=== PATIENT | female | born 1950 | race Caucasian/White ===

== ENCOUNTER 2017-07-22 13:53 | Emergency (ER) | payer MEDICARE, OTHER ==
[2017-07-22] MEDS ORDERED: PROPARACAINE 0.5% OPHTH DROPS 15 ML BTL RIGHT EYE STA (14:22)
[2017-07-22] MEDS ORDERED: FLUORESCEIN STRIPS 1 MG STRIP RIGHT EYE ONE (14:22)
[2017-07-22] MEDS ORDERED: ARTIFICIAL TEARS-HYPROMELLOSE DROPS 15 ML BTL RIGHT EYE PRN (15:46)
--- NOTE | 2017-07-22 15:47 | ED ---
Eye Problem HPI - General Chief complaint: Eye Problems Stated complaint: eye problems-sent by [facility] Time Seen by Provider: 07/22/17 14:20 Source: patient Mode of arrival: ambulatory Limitations: no limitations - History of Present Illness Initial comments: 67 yo female presenting for evaluation of eye pain starting today. States she doesn't believe anything flew into it or any foreign bodies. She was seen at an outside urgent care and states that she was referred here for rule out of glaucoma. She denies seeing an remelt pan tank operator in the past despite being a diabetic and only sees an cut off sawyer shingle mill. Otherwise she denies eye redness, vision change, fever, chills, nausea, vomiting, headache. - Related Data Home Medications Medication Instructions Recorded Confirmed Atorvastatin [Lipitor] 80 mg PO DAILY 07/22/17 07/22/17 Estrogens, Conjugated [Premarin] 0.625 mg PO DAILY 07/22/17 07/22/17 Glimepiride [Amaryl] 4 mg PO AC-BRKFST 07/22/17 07/22/17 Lisinopril 40 mg PO DAILY 07/22/17 07/22/17 Montelukast [Singulair] 10 mg PO HS 07/22/17 07/22/17 Pioglitazone [Actos] 15 mg PO HS 07/22/17 07/22/17 Venlafaxine HCl [Effexor XR] 150 mg PO DAILY 07/22/17 07/22/17 metFORMIN HCL 1,000 mg PO BID 07/22/17 07/22/17 Previous Rx's Medication Instructions Recorded Artificial Tears-Hypromellose 1 drops RIGHT EYE TID #1 bottle 07/22/17 [Artificial Tear Drops] Allergies Allergy/AdvReac Type Severity Reaction Status Date / Time No Known Allergies Allergy Verified 07/22/17 14:46 Review of Systems ROS Statement: Those systems with pertinent positive or pertinent negative responses have been documented in the HPI. ROS Other: All systems not noted in ROS Statement are negative. Constitutional: Denies: fever, chills Eyes: Reports: eye pain. Denies: eye discharge, vision change ENT: Denies: ear pain, throat pain, dental pain, hearing loss, congestion Respiratory: Denies: cough, dyspnea Cardiovascular: Denies: chest pain, syncope Endocrine: Denies: fatigue, polydipsia Gastrointestinal: Denies: nausea, vomiting Genitourinary: Denies: urgency, dysuria Musculoskeletal: Denies: back pain, myalgia Skin: Denies: rash, lesions Neurological: Denies: headache, weakness Psychiatric: Denies: anxiety, depression Hematological/Lymphatic: Denies: easy bleeding, easy bruising Past Medical History Past Medical History: Diabetes Mellitus, Hyperlipidemia, Hypertension History of Any Multi-Drug Resistant Organisms: None Reported Past Surgical History: Hysterectomy Past Psychological History: Anxiety Smoking Status: Former smoker Past Alcohol Use History: Rare Past Drug Use History: None Reported General Exam Limitations: no limitations General appearance: alert, in no apparent distress Head exam: Present: atraumatic, normocephalic, normal inspection Eye exam: Present: normal appearance, PERRL, EOMI, other (ocular pressure slightly elevated at 28). Absent: scleral icterus, conjunctival injection, periorbital swelling ENT exam: Present: normal exam, mucous membranes moist Neck exam: Present: normal inspection. Absent: tenderness, meningismus, lymphadenopathy Respiratory exam: Present: normal lung sounds bilaterally. Absent: respiratory distress, wheezes, rales, rhonchi, stridor Cardiovascular Exam: Present: regular rate, normal rhythm, normal heart sounds. Absent: systolic murmur, diastolic murmur, rubs, gallop, clicks GI/Abdominal exam: Present: soft, normal bowel sounds. Absent: distended, tenderness, guarding, rebound, rigid Rectal exam: Present: deferred Extremities exam: Present: normal inspection, full ROM, normal capillary refill. Absent: tenderness, pedal edema, joint swelling, calf tenderness Back exam: Present: normal inspection Neurological exam: Present: alert, oriented X3, CN II-XII intact Psychiatric exam: Present: normal affect, normal mood Skin exam: Present: warm, dry, intact, normal color. Absent: rash Course Vital Signs 07/22/17 07/22/17 14:12 16:07 Temperature 98.2 F 98.4 F Pulse Rate 89 81 Respiratory 18 16 Rate Blood Pressure 149/69 140/77 O2 Sat by Pulse 97 95 Oximetry Medical Decision Making - Medical Decision Making 67 yo female with pmh as stated above presenting for evaluation of right eye pain starting today. Denies trauma or foreign body. On PE the eye is non- injected, PERRLA, without pain on movement. Slit lamp exam reveals no acute abnormalities and fluorescein staining showed no uptake. IOP was slightly elevated to 28 however the patient was discussed with the on-call remelt pan tank operator Dr. Hess and he agreed with plan to discharge home and to have her follow up in his office tomorrow morning. The pt was reevaluated and had resolution of pain. She was informed of recommendation to follow up as an outpatient and agreed. She was further given return instructions. The patient acknowledged an understanding of this information, was given a prescription for artificial tears, and discharged. Disposition Clinical Impression: Conjunctivitis, Eye pain, Elevated IOP Disposition: HOME SELF-CARE Condition: Stable Instructions: Eye Lubricant (Into the eye) Additional Instructions: Please use medication as discussed. Please follow up with family doctor if symptoms have not improved over the next two days. Please return to the emergency room if your symptoms increase or worsen or for any other concerns. Prescriptions: Artificial Tears-Hypromellose [Artificial Tear Drops] 1 drops RIGHT EYE TID #1 bottle Referrals: Lorenzo Dugan DO [Primary Care Provider] - 1-2 days Time of Disposition: 15:47
[2017-07-22 16:08] VITALS: BP 140/77; PULSE 81; RESP 16; TEMP 98.4
--- NOTE | 2017-07-25 02:50 | CDI ---
Documentation Clarification OP Dear Mehrdad RICE, DO Please do addendum to ED report for HPI , Physical exam and MDM. Thank you, Teena Desai Field Reviewer If you have any question, Please contact coding file clerk at [phone] [facility]
== END 2017-07-22 16:10 | disposition home or self-care (01) ==
LOC: EC 13:53
DX: H10.9 Unspecified conjunctivitis (principal); H57.11 Ocular pain, right eye; H40.059 Ocular hypertension, unspecified eye; E11.9 Type 2 diabetes mellitus without complications; E78.5 Hyperlipidemia, unspecified; I10 Essential (primary) hypertension; F41.9 Anxiety disorder, unspecified; Z87.891 Personal history of nicotine dependence; Z79.84 Long term (current) use of oral hypoglycemic drugs; Z79.899 Other long term (current) drug therapy
CPT/HCPCS: 99283

== ENCOUNTER 2018-02-04 00:51 | Emergency (ER) | payer MEDICARE ==
[2018-02-04 01:07] VITALS: TEMP 98.9
[2018-02-04] MEDS ORDERED: KETOROLAC 30 MG/ML 1 ML VIAL IM STA (01:16)
--- NOTE | 2018-02-04 01:21 | ED ---
General Adult HPI - General Chief complaint: Extremity Injury, Lower Stated complaint: fall,knee pain Time Seen by Provider: 02/04/18 01:08 Source: patient, RN notes reviewed Mode of arrival: ambulatory Limitations: no limitations - History of Present Illness Initial comments: 68-year-old female presenting with left knee pain. Patient was working in her yard and cries throughout the afternoon. While moving furniture out of her garage, she did slip and fall, fell onto her backside. There is no head or neck trauma. Throughout the afternoon and evening, she developed left knee pain. She denies any specific trauma to the knee. When she fell she did not land on her knee. No popping sensation or specific injury. Complaint is left medial knee. Worse with ambulation. No numbness or tingling distally. No back pain. No hip pain. Patient has history of hypertension, diabetes, and hypercholesterolemia. No anticoagulation. - Related Data Home Medications Medication Instructions Recorded Confirmed Atorvastatin [Lipitor] 80 mg PO DAILY 07/22/17 02/04/18 Estrogens, Conjugated [Premarin] 0.625 mg PO DAILY 07/22/17 02/04/18 Glimepiride [Amaryl] 4 mg PO AC-BRKFST 07/22/17 02/04/18 Lisinopril 40 mg PO DAILY 07/22/17 02/04/18 Montelukast [Singulair] 10 mg PO HS 07/22/17 02/04/18 Pioglitazone [Actos] 15 mg PO HS 07/22/17 02/04/18 Venlafaxine HCl [Effexor XR] 150 mg PO DAILY 07/22/17 02/04/18 metFORMIN HCL 1,000 mg PO BID 07/22/17 02/04/18 Previous Rx's Medication Instructions Recorded Artificial Tears-Hypromellose 1 drops RIGHT EYE TID #1 bottle 07/22/17 [Artificial Tear Drops] Ibuprofen [Motrin] 600 mg PO Q8HR PRN #24 tab 02/04/18 Allergies Allergy/AdvReac Type Severity Reaction Status Date / Time No Known Allergies Allergy Verified 07/22/17 14:46 Review of Systems ROS Statement: Those systems with pertinent positive or pertinent negative responses have been documented in the HPI. ROS Other: All systems not noted in ROS Statement are negative. Past Medical History Past Medical History: Diabetes Mellitus, Hyperlipidemia, Hypertension History of Any Multi-Drug Resistant Organisms: None Reported Past Surgical History: Hysterectomy Past Psychological History: Anxiety Smoking Status: Former smoker Past Alcohol Use History: Rare Past Drug Use History: None Reported General Exam Limitations: no limitations General appearance: alert, in no apparent distress Head exam: Present: atraumatic, normocephalic Eye exam: Present: normal appearance, PERRL Neck exam: Present: normal inspection, full ROM. Absent: tenderness, meningismus Respiratory exam: Present: normal lung sounds bilaterally. Absent: respiratory distress Cardiovascular Exam: Present: regular rate, normal rhythm GI/Abdominal exam: Present: soft. Absent: distended, tenderness Extremities exam: Present: tenderness (Left anterior medial tenderness with mild effusion, knee is stable.), normal capillary refill, joint swelling, other ((Extremity: DP and PT pulses 2+. No no deformity.) Back exam: Present: normal inspection, full ROM. Absent: tenderness, paraspinal tenderness, vertebral tenderness Neurological exam: Present: alert, oriented X3, CN II-XII intact. Absent: motor sensory deficit Psychiatric exam: Present: normal affect, normal mood Skin exam: Present: warm, dry, intact. Absent: cyanosis, diaphoretic Course Vital Signs 02/04/18 01:03 Temperature 98.9 F Pulse Rate 87 Respiratory 20 Rate Blood Pressure 171/81 O2 Sat by Pulse 97 Oximetry Medical Decision Making - Medical Decision Making 68 yo female with left anterior knee pain. X-rays obtained, no fracture dislocation. Patient is given Toradol, she is placed in knee immobilizer, she will follow-up with orthopedic surgery for further evaluation. Disposition Clinical Impression: Left knee sprain Disposition: HOME SELF-CARE Condition: Good Instructions: Knee Sprain (ED) Prescriptions: Ibuprofen [Motrin] 600 mg PO Q8HR PRN #24 tab PRN Reason: Pain Is patient prescribed a controlled substance at d/c from ED?: No Referrals: Lorenzo Dugan DO [Primary Care Provider] - 1-2 days Javon Proctor MD [STAFF PHYSICIAN] - 1-2 days Time of Disposition: 01:50
--- NOTE | 2018-02-04 01:51 | XR ---
EXAMINATION TYPE: XR knee complete LT DATE OF EXAM: 02/04/2018 COMPARISON: NONE HISTORY: Pain TECHNIQUE: 3 views FINDINGS: I see no fracture nor dislocation. Joint spaces are normal. There is no sign of joint effus ion. IMPRESSION: Negative left knee exam.
[2018-02-04 02:07] VITALS: BP 160/96; PULSE 86; RESP 18
== END 2018-02-04 02:00 | disposition home or self-care (01) ==
LOC: EC 00:51
DX: S83.92XA Sprain of unspecified site of left knee, initial encounter (principal); E78.00 Pure hypercholesterolemia, unspecified; E78.5 Hyperlipidemia, unspecified; I10 Essential (primary) hypertension; E11.9 Type 2 diabetes mellitus without complications; F41.9 Anxiety disorder, unspecified; Z87.891 Personal history of nicotine dependence; Z79.84 Long term (current) use of oral hypoglycemic drugs; Z79.899 Other long term (current) drug therapy; W01.0XXA Fall on same level from slipping, tripping and stumbling without subsequent striking against object, initial encounter; Y93.89 Activity, other specified; Y92.017 Garden or yard in single-family (private) house as the place of occurrence of the external cause
CPT/HCPCS: 73562; 99283; 96372; L1830 ×2; J1885

== ENCOUNTER → 2019-03-05 | Outpatient (CLI) | payer MEDICARE ==
[2019-03-05 16:21] LABS: Basophils % (A) 0 %; Eosinophils # (A) 0.4 k/uL (0-0.7); Eosinophils % (A) 4 %; HCT 38.4 % (34.0-46.0); HGB 12.9 gm/dL (11.4-16.0); Lymphocytes # (A) 1.9 k/uL (1.0-4.8); Lymphocytes % (A) 22 %; MCH 30.7 pg (25.0-35.0); MCHC 33.5 g/dL (31.0-37.0); MCV 91.7 fL (80.0-100.0); Monocytes # (A) 0.3 k/uL (0-1.0); Monocytes % (A) 4 %; Neutrophils % (A) 68 %; Platelet Count 354 k/uL (150-450); RBC 4.19 m/uL (3.80-5.40); RDW 13.3 % (11.5-15.5); WBC 8.8 k/uL (3.8-10.6)
[2019-03-05 17:18] LABS: Erythrocyte Sedimentation Rate 29 mm/hr (0-20)
[2019-03-06 00:34] LABS: Albumin 4.1 g/dL (3.80-4.90); Albumin/Globulin Ratio 1.58 (1.60-3.17); Anion Gap 9.9 mmol/L (4.00-12.00); C Reactive Protein 1.4 mg/dL (0.0-0.8); Calcium 9.3 mg/dL (8.7-10.3); Carbon Dioxide 26.1 mmol/L (21.6-31.8); Globulin 2.6 g/dL (1.6-3.3); Potassium 4.3 mmol/L (3.5-5.5); Total Bilirubin 0.3 mg/dL (0.3-1.2); Total Protein 6.7 g/dL (6.2-8.2)
[2019-03-06 01:11] LABS: Thyroid Peroxidase Antibodies <28.0 U/mL (0.0-60.0)
[2019-03-07 17:57] LABS: C1 Esterase Inhibitor, Protein 36 mg/dL (21-39)
[2019-03-13 19:16] LABS: C1 Esterase Inhibitor Fnc Assy >90 % (> 67)
== END | disposition home or self-care (01) ==
LOC: LABWHC1 15:30
PROVIDERS: ATTEND Allergy & Immunology
DX: T78.3XXA Angioneurotic edema, initial encounter (principal)
CPT/HCPCS: 36415; 80053; 84443; 85025; 85652; 86140; 86160; 86161; 86332; 86376; 86800; 88184; 88185

== ENCOUNTER 2019-10-27 23:16 | Emergency (ER) | payer MEDICARE ==
[2019-10-27 23:41] VITALS: PULSE 94; RESP 20; TEMP 98.7
--- NOTE | 2019-10-28 00:21 | XR ---
EXAMINATION TYPE: XR ankle complete LT DATE OF EXAM: 10/28/2019 COMPARISON: NONE HISTORY: Ankle pain TECHNIQUE: 3 views FINDINGS: There is mild soft tissue swelling over the lateral malleolus. The distal fibula is irregul ar and there appears to be nondisplaced large chip fracture of the tip of the distal fibula best seen on the lateral view. There is a plantar calcaneal spur. IMPRESSION: Nondisplaced fracture of the distal fibula. Soft tissue swelling.
[2019-10-28] MEDS ORDERED: ACET/COD 300 MG/30 MG STARTER PACK 6 TAB BTL PO STA (00:51)
[2019-10-28] MEDS ORDERED: MORPHINE SULFATE 4 MG/ML SYRINGE IM STA (00:51)
--- NOTE | 2019-10-28 00:56 | ED ---
General Adult HPI - General Chief complaint: Extremity Injury, Lower Stated complaint: ankle injury Source: patient, RN notes reviewed, old records reviewed Mode of arrival: wheelchair Limitations: no limitations - History of Present Illness Initial comments: Is a 69-year-old female presents with left ankle injury. Patient reports that she twisted her ankle while stepping off a stair in her house. Patient reports she twisted her ankle. No other injuries at this time. No previous ankle fractures. - Related Data Home Medications Medication Instructions Recorded Confirmed Atorvastatin [Lipitor] 80 mg PO DAILY 07/22/17 02/04/18 Estrogens, Conjugated [Premarin] 0.625 mg PO DAILY 07/22/17 02/04/18 Glimepiride [Amaryl] 4 mg PO AC-BRKFST 07/22/17 02/04/18 Lisinopril 40 mg PO DAILY 07/22/17 02/04/18 Montelukast [Singulair] 10 mg PO HS 07/22/17 02/04/18 Pioglitazone [Actos] 15 mg PO HS 07/22/17 02/04/18 Venlafaxine HCl [Effexor XR] 150 mg PO DAILY 07/22/17 02/04/18 metFORMIN HCL 1,000 mg PO BID 07/22/17 02/04/18 Previous Rx's Medication Instructions Recorded Artificial Tears-Hypromellose 1 drops RIGHT EYE TID #1 bottle 07/22/17 [Artificial Tear Drops] Ibuprofen [Motrin] 600 mg PO Q8HR PRN #24 tab 02/04/18 HYDROcodone/APAP 5-325MG [[place] 1 tab PO Q6HR PRN #10 tab 10/28/19 5-325] Allergies Allergy/AdvReac Type Severity Reaction Status Date / Time No Known Allergies Allergy Verified 10/27/19 23:41 Review of Systems ROS Statement: Those systems with pertinent positive or pertinent negative responses have been documented in the HPI. ROS Other: All systems not noted in ROS Statement are negative. Past Medical History Past Medical History: Diabetes Mellitus, Hyperlipidemia, Hypertension History of Any Multi-Drug Resistant Organisms: None Reported Past Surgical History: Hysterectomy Past Psychological History: Anxiety Smoking Status: Former smoker Past Alcohol Use History: Rare Past Drug Use History: None Reported General Exam - General Exam Comments Initial Comments: 69-year-old female. Alert and oriented 3. No distress. Limitations: no limitations General appearance: alert, in no apparent distress Head exam: Present: atraumatic, normocephalic, normal inspection Eye exam: Present: normal appearance, PERRL, EOMI. Absent: scleral icterus, conjunctival injection, periorbital swelling ENT exam: Present: normal exam, mucous membranes moist Neck exam: Present: normal inspection. Absent: tenderness, meningismus, lymphadenopathy Respiratory exam: Present: normal lung sounds bilaterally. Absent: respiratory distress, wheezes, rales, rhonchi, stridor Cardiovascular Exam: Present: regular rate, normal rhythm, normal heart sounds. Absent: systolic murmur, diastolic murmur, rubs, gallop, clicks GI/Abdominal exam: Present: soft, normal bowel sounds. Absent: distended, tenderness, guarding, rebound, rigid Extremities exam: Present: normal inspection, full ROM, normal capillary refill. Absent: tenderness, pedal edema, joint swelling, calf tenderness Left Knee exam: Present: normal inspection, full ROM Lower Leg exam: Present: normal inspection, full ROM Ankle exam: Present: tenderness, swelling. Absent: normal inspection, full ROM Foot/Toe exam: Present: full ROM. Absent: normal inspection Neurovascular tendon exam: Present: no vascular compromise Gait: observed and normal Back exam: Present: normal inspection Neurological exam: Present: alert, oriented X3, CN II-XII intact Psychiatric exam: Present: normal affect, normal mood Course Vital Signs 10/27/19 23:39 Temperature 98.7 F Pulse Rate 94 Respiratory 20 Rate Blood Pressure 167/123 O2 Sat by Pulse 100 Oximetry Procedures - Orthopedic Splinting/Casting Injury #1 Side: left Lower Extremity Injury Location: ankle Lower Extremity Immobilizer: posterior splint, stirrup splint, Freedom wrap, synthetic pre-padded splint Additional Comments: Patient was reevaluated neurovascularly intact. Medical Decision Making - Medical Decision Making 69-year-old female with left ankle injury. Patient tripped and twisted this at home. Patient has evidence of a distal fibula fracture. Patient is neurovascularly intact. Patient had splint applied. Patient will be advised to follow-up with orthopedics. Discussed return parameters and PCP follow-up. - Radiology Data Radiology results: report reviewed Nondisplaced fracture of distal fibula. Soft tissue swelling. Disposition Clinical Impression: Fracture of distal fibula Disposition: HOME SELF-CARE Condition: Good Additional Instructions: Remain in the splint until seen by orthopedics. Patient can ambulate with crutches. Taking pain medication as prescribed. Return to emergency department if any alarming signs or symptoms occur. Prescriptions: HYDROcodone/APAP 5-325MG [[place] 5-325] 1 tab PO Q6HR PRN #10 tab PRN Reason: Pain Is patient prescribed a controlled substance at d/c from ED?: Yes If prescribed controlled substance>3 days was MAPS reviewed?: Prescribed <3 Days If opioid is for acute pain is fill amount 7 days or less?: Yes If Rx opioid, was Start Talking consent form obtained?: Yes Referrals: Gaurang Chaidez DO [Primary Care Provider] - 1-2 days Javon Proctor MD [STAFF PHYSICIAN] - 1-2 days Lorenzo Randall DO [Doctor of Osteopathic Medicine] - 1-2 days Time of Disposition: 00:53
[2019-10-28 01:55] VITALS: BP 150/94
== END 2019-10-28 01:13 | disposition home or self-care (01) ==
LOC: EC 23:16
DX: S82.832A Other fracture of upper and lower end of left fibula, initial encounter for closed fracture (principal); E11.9 Type 2 diabetes mellitus without complications; E78.5 Hyperlipidemia, unspecified; I10 Essential (primary) hypertension; F41.9 Anxiety disorder, unspecified; Z87.891 Personal history of nicotine dependence; Z79.84 Long term (current) use of oral hypoglycemic drugs; Z79.890 Hormone replacement therapy; Z79.899 Other long term (current) drug therapy; X50.1XXA Overexertion from prolonged static or awkward postures, initial encounter; Y93.89 Activity, other specified; Y92.009 Unspecified place in unspecified non-institutional (private) residence as the place of occurrence of the external cause
CPT/HCPCS: 99284; 29505; 96372; 73610; J2270

== ENCOUNTER 2019-10-30 13:33 | Observation (INO) | payer MEDICARE ==
[2019-10-30] MEDS ORDERED: methylPREDNISolone SOD SUCCI 125 MG/2 ML VIAL IV STA (13:41)
[2019-10-30] MEDS ORDERED: FAMOTIDINE 20 MG/2 ML VIAL IV STA (13:41)
[2019-10-30] MEDS ORDERED: diphenhydrAMINE 50 MG/ML 1 ML VIAL IVP STA (13:41)
--- NOTE | 2019-10-30 13:50 | ED ---
General Adult HPI - General Chief complaint: Allergic Reaction Stated complaint: Swollen tounge Time Seen by Provider: 10/30/19 13:38 Source: patient, RN notes reviewed, old records reviewed Mode of arrival: ambulatory Limitations: no limitations - History of Present Illness Initial comments: 69-year-old female with tongue swelling. Patient has been dealing with ALLERGIES in the past several months. She's had multiple changes to her blood pressure medication. She is uncertain what blood pressure medication she is currently on. She was previously on lisinopril. She states that the right side of her tongue began swelling earlier this morning and has progressed to the entire tongue. No dyspnea. No difficulty swallowing. No vomiting. She had also complained of some hand itching and some eye swelling over the past 48 hours. She gave herself on epinephrine injection at approximately noon without improvement in her symptoms. She has been seen by her cement tile maker. - Related Data Home Medications Medication Instructions Recorded Confirmed Atorvastatin [Lipitor] 80 mg PO DAILY 07/22/17 10/30/19 Venlafaxine HCl [Effexor XR] 150 mg PO DAILY 07/22/17 10/30/19 ALPRAZolam [Xanax] 0.5 mg PO BID PRN 10/30/19 10/30/19 Acetaminophen-Codeine 300-30mg 1 tab PO DIRECTED PRN 10/30/19 10/30/19 [Tylenol w/codeine #3] Venlafaxine HCl [Effexor] 75 mg PO DAILY 10/30/19 10/30/19 amLODIPine [Norvasc] 5 mg PO DAILY 10/30/19 10/30/19 metFORMIN HCL [Glucophage] 1,000 mg PO BID 10/30/19 10/30/19 Allergies Allergy/AdvReac Type Severity Reaction Status Date / Time No Known Allergies Allergy Verified 10/30/19 14:28 Review of Systems ROS Statement: Those systems with pertinent positive or pertinent negative responses have been documented in the HPI. ROS Other: All systems not noted in ROS Statement are negative. Past Medical History Past Medical History: Diabetes Mellitus, Hyperlipidemia, Hypertension History of Any Multi-Drug Resistant Organisms: None Reported Past Surgical History: Hysterectomy Past Psychological History: Anxiety Smoking Status: Former smoker Past Alcohol Use History: Rare Past Drug Use History: None Reported General Exam Limitations: no limitations General appearance: alert, in no apparent distress Head exam: Present: atraumatic, normocephalic Eye exam: Present: normal appearance, PERRL, EOMI. Absent: periorbital swelling ENT exam: Present: other (Large edematous tongue, no posterior oropharynx swelling, no uvular swelling.) Respiratory exam: Present: normal lung sounds bilaterally. Absent: respiratory distress, wheezes, stridor Cardiovascular Exam: Present: regular rate, normal rhythm GI/Abdominal exam: Present: soft. Absent: distended, tenderness Extremities exam: Present: normal inspection, normal capillary refill. Absent: calf tenderness Neurological exam: Present: alert, oriented X3, CN II-XII intact. Absent: motor sensory deficit Psychiatric exam: Present: normal affect, normal mood Skin exam: Present: warm, dry, intact. Absent: cyanosis, diaphoretic Course Vital Signs 10/30/19 10/30/19 10/30/19 13:35 14:35 15:25 Temperature 98.4 F 98.2 F 98.4 F Pulse Rate 96 100 110 H Respiratory 20 18 18 Rate Blood Pressure 178/74 189/77 O2 Sat by Pulse 98 98 99 Oximetry 10/30/19 10/30/19 10/30/19 15:35 16:00 16:05 Temperature 98.3 F 98.3 F 98.2 F Pulse Rate 106 H 102 H 110 H Respiratory 18 18 18 Rate Blood Pressure 148/66 162/81 162/81 O2 Sat by Pulse 99 98 98 Oximetry - Reevaluation(s) Reevaluation #1: 10/30/19 16:23 Patient reevaluated multiple times while emergency department. Initially the marcelino doss did have the sensation of difficulty swallowing, at this time she was given epinephrine and fresh frozen plasma. I reevaluated the patient's again after approximately 3 hours. She has improvement in her tongue swelling. No stridor. No dyspnea. EKG Findings - EKG Comments: EKG Findings:: EKG: Sinus tachycardia age undetermined septal infarct, rate of 106, TX interval 176, QRS duration 72, QTC [address] segment elevation. Medical Decision Making - Medical Decision Making 69-year-old female with tongue swelling. Patient has significant tongue swelling consistent with angioedema on exam. No posterior oropharynx or uvular swelling. No stridor. No respiratory distress. Patient had taken epinephrine at home prior to arrival. She's given Solu-Medrol, Benadryl, Pepcid. She is also started on FFP and given a single dose of epinephrine while in the emergency department. I did reevaluate the patient she had improvement in tongue swelling. Given the significance of her tongue swelling she will be kept in observation with continued treatment. I discussed case with both the admitting physician Dr. Cotto, and the pulmonary toolroom machinist Dr. Neely. Patient will require observation, but does not require intubation at this time. - Lab Data Result diagrams: 10/30/19 14:04 10/30/19 14:04 Lab Results 10/30/19 10/30/19 10/30/19 Range/Units 14:04 14:04 14:32 WBC 10.2 (3.8-10.6) k/uL RBC 4.46 (3.80-5.40) m/uL Hgb 14.1 (11.4-16.0) gm/dL Hct 41.9 (34.0-46.0) % MCV 94.0 (80.0-100.0) fL MCH 31.6 (25.0-35.0) pg MCHC 33.6 (31.0-37.0) g/dL RDW 12.7 (11.5-15.5) % Plt Count 284 (150-450) k/uL Neutrophils % 74 % Lymphocytes % 17 % Monocytes % 3 % Eosinophils % 4 % Basophils % 0 % Neutrophils # 7.6 (1.3-7.7) k/uL Lymphocytes # 1.7 (1.0-4.8) k/uL Monocytes # 0.3 (0-1.0) k/uL Eosinophils # 0.4 (0-0.7) k/uL Basophils # 0.0 (0-0.2) k/uL Sodium 135 L (137-145) mmol/L Potassium 4.7 (3.5-5.1) mmol/L Chloride 101 (98-107) mmol/L Carbon Dioxide 22 (22-30) mmol/L Anion Gap 12 mmol/L BUN 12 (7-17) mg/dL Creatinine 0.62 (0.52-1.04) mg/dL Est GFR (CKD-EPI)AfAm >90 (>60 ml/min/1.73 sqM) Est GFR (CKD-EPI)NonAf >90 (>60 ml/min/1.73 sqM) Glucose 485 H (74-99) mg/dL Calcium 9.2 (8.4-10.2) mg/dL Total Bilirubin 0.6 (0.2-1.3) mg/dL AST 27 (14-36) U/L ALT 21 (4-34) U/L Alkaline Phosphatase 113 (38-126) U/L Total Protein 7.0 (6.3-8.2) g/dL Albumin 3.9 (3.5-5.0) g/dL Blood Type O Negative Blood Type Recheck O Neg Bld Type Recheck Status No Antibody Screen POSITIVE Direct Antiglob Test Negative Transfuse Plasma Spec Expiration Date 11/02/2019232910/30/19 Range/Units 14:59 WBC (3.8-10.6) k/uL RBC (3.80-5.40) m/uL Hgb (11.4-16.0) gm/dL Hct (34.0-46.0) % MCV (80.0-100.0) fL MCH (25.0-35.0) pg MCHC (31.0-37.0) g/dL RDW (11.5-15.5) % Plt Count (150-450) k/uL Neutrophils % % Lymphocytes % % Monocytes % % Eosinophils % % Basophils % % Neutrophils # (1.3-7.7) k/uL Lymphocytes # (1.0-4.8) k/uL Monocytes # (0-1.0) k/uL Eosinophils # (0-0.7) k/uL Basophils # (0-0.2) k/uL Sodium (137-145) mmol/L Potassium (3.5-5.1) mmol/L Chloride (98-107) mmol/L Carbon Dioxide (22-30) mmol/L Anion Gap mmol/L BUN (7-17) mg/dL Creatinine (0.52-1.04) mg/dL Est GFR (CKD-EPI)AfAm (>60 ml/min/1.73 sqM) Est GFR (CKD-EPI)NonAf (>60 ml/min/1.73 sqM) Glucose (74-99) mg/dL Calcium (8.4-10.2) mg/dL Total Bilirubin (0.2-1.3) mg/dL AST (14-36) U/L ALT (4-34) U/L Alkaline Phosphatase (38-126) U/L Total Protein (6.3-8.2) g/dL Albumin (3.5-5.0) g/dL Blood Type Blood Type Recheck Bld Type Recheck Status Antibody Screen Direct Antiglob Test Transfuse Plasma 10/30/2019 Spec Expiration Date Disposition Clinical Impression: Angioedema Disposition: ADMITTED IP TO THIS [facility] Condition: Stable Is patient prescribed a controlled substance at d/c from ED?: No Referrals: Gaurang Chaidez DO [Primary Care Provider] - 1-2 days Decision to Admit Reason: Admit from EC Decision Date: 10/30/19 Decision Time: 15:25
[2019-10-30 14:18] LABS: Basophils % (A) 0 %; Eosinophils # (A) 0.4 k/uL (0-0.7); Eosinophils % (A) 4 %; HCT 41.9 % (34.0-46.0); HGB 14.1 gm/dL (11.4-16.0); Lymphocytes # (A) 1.7 k/uL (1.0-4.8); Lymphocytes % (A) 17 %; MCH 31.6 pg (25.0-35.0); MCHC 33.6 g/dL (31.0-37.0); Mean Platelet Volume 8.1; Monocytes # (A) 0.3 k/uL (0-1.0); Monocytes % (A) 3 %; Neutrophils # (A) 7.6 k/uL (1.3-7.7); Neutrophils % (A) 74 %; Platelet Count 284 k/uL (150-450); RBC 4.46 m/uL (3.80-5.40); RDW 12.7 % (11.5-15.5); WBC 10.2 k/uL (3.8-10.6)
[2019-10-30 14:29] LABS: ALT 21 U/L (4-34); AST 27 U/L (14-36); African American GFR (CKD) >90 (>60 ml/min/1.73 sqM); Albumin 3.9 g/dL (3.5-5.0); Alkaline Phosphatase 113 U/L (38-126); Anion Gap 12 mmol/L; Blood Urea Nitrogen 12 mg/dL (7-17); Calcium 9.2 mg/dL (8.4-10.2); Carbon Dioxide 22 mmol/L (22-30); Chloride 101 mmol/L (98-107); Glucose 485 mg/dL (74-99); Non-African American GFR(CKD) >90 (>60 ml/min/1.73 sqM); Potassium 4.7 mmol/L (3.5-5.1); Sodium 135 mmol/L (137-145); Total Bilirubin 0.6 mg/dL (0.2-1.3)
[2019-10-30] MEDS ORDERED: EPINEPHrine 1 MG/ML 1 ML AMP IM STA (14:33)
[2019-10-30] MEDS ORDERED: INSULIN REGULAR 100 UNIT/ML VIAL IV ONE (15:12)
[2019-10-30 15:26] VITALS: RESP 18
[2019-10-30] MEDS: SODIUM CHLORIDE 0.9% 1,000 ML IV SCH (16:00)
[2019-10-30] MEDS ORDERED: diphenhydrAMINE 50 MG/ML 1 ML VIAL IVP PRN (16:21)
[2019-10-30] MEDS ORDERED: NALOXONE 0.4 MG/ML 1 ML VIAL IV PRN (16:22)
[2019-10-30 16:41] LABS: INR 0.9 (<1.2); Partial Thromboplastin Time 23.9 sec (22.0-30.0); Prothrombin Time 9.5 sec (9.0-12.0)
[2019-10-30] MEDS ORDERED: ALPRAZolam 0.5 MG TAB PO PRN (20:33)
[2019-10-30] MEDS ORDERED: Acetaminophen-Codeine 300-30mg TAB PO PRN (20:33)
[2019-10-30 21:31] LABS: Glucose,Whole Blood 482 mg/dL (75-99)
[2019-10-30] MEDS: metFORMIN 500 MG TAB PO SCH (23:19)
[2019-10-30] MEDS: FAMOTIDINE 20 MG/2 ML VIAL IV SCH (23:22)
[2019-10-30] MEDS: methylPREDNISolone SOD SUCCI 125 MG/2 ML VIAL IV SCH (23:23)
[2019-10-31] MEDS: VENLAFAXINE HCL ER 75 MG CAP PO SCH ×2 (04:51→04:52)
[2019-10-31] MEDS: VENLAFAXINE HCL ER 150 MG CAP PO SCH ×2 (04:51→04:52)
[2019-10-31 07:26] LABS: Glucose,Whole Blood 406 mg/dL (75-99)
[2019-10-31] MEDS: metFORMIN 500 MG TAB PO SCH (07:37)
[2019-10-31] MEDS: INSULIN ASPART (NovoLOG) 100 UNIT/ML VIAL SQ SCH ×2 (07:37→12:35)
[2019-10-31] MEDS ORDERED: amLODIPine 5 MG TAB PO SCH (09:00)
[2019-10-31] MEDS: methylPREDNISolone SOD SUCCI 125 MG/2 ML VIAL IV SCH (09:44)
[2019-10-31] MEDS: FAMOTIDINE 20 MG/2 ML VIAL IV SCH (09:44)
[2019-10-31 11:43] LABS: Glucose,Whole Blood 316 mg/dL (75-99)
[2019-10-31] MEDS: SODIUM CHLORIDE 0.9% 1,000 ML IV SCH (12:38)
--- NOTE | 2019-10-31 12:53 | P.CNPUL ---
History of Present Illness Consult date: 10/31/19 Reason for consult: other Chief complaint: Tongue and lip swelling, angioedema History of present illness: 79-year-old white female patient who has been having intermittent ALLERGIC symptoms for a period of time and was seen and stone layer on an outpatient basis. Apparently patient had been experiencing intermittent swelling of her lips, and sometimes intermittent unilateral swelling of her eyelids for unknown reasons that would spontaneously resolve. Patient denies environmental or food ALLERGIES, she went to see an workforce specialist who took her off her blood pressure medication presumably lisinopril, and patient was supposed to have outpatient ALLERGY testing coming up. Was recently started on Norvasc by Dr. Chaidez a few weeks ago for blood pressure control, no other medication change. Denies any use of NSAIDs. Patient is a the hospital on 10/30/2019 evaluation of sudden tongue swelling, that was progressively worse, with an unknown precipitating factor, her tongue continue to swell, started protruding out of her mouth, having difficulty swallowing but denies any difficulty breathing chest pain or syncope she came into the emergency department for evaluation. She did give herself an epinephrine injection at home without improvement in her symptoms. Patient was started on steroids, H2 blockers, and antihistamines, with subsequent improvement of her symptoms. Patient currently resting co mfortably in bed, room air pulse ox is 97-98%, but signs are stable, has subsided, patient is eating and swallowing without any difficulty, breathing nonlabored, lung sounds are clear. Review of Systems All systems: negative Constitutional: Denies chills, Denies fever Eyes: denies blurred vision, denies pain Ears, nose, mouth and throat: Reports swelling in mouth, Reports swelling in throat, Denies headache, Denies sore throat Cardiovascular: Denies chest pain, Denies shortness of breath Respiratory: Denies cough Gastrointestinal: Denies abdominal pain, Denies diarrhea, Denies nausea, Denies vomiting Genitourinary: Denies dysuria, Denies hematuria Musculoskeletal: Denies myalgias Integumentary: Denies pruritus, Denies rash Neurological: Denies numbness, Denies weakness Psychiatric: Denies anxiety, Denies depression Endocrine: Denies fatigue, Denies weight change Past Medical History Past Medical History: Diabetes Mellitus, Hyperlipidemia, Hypertension Additional Past Medical History / Comment(s): Sunday10/27/19 CAME TO THE ER NOW HAS A BOOT ON LEFT LEG R/T FALL, DX WITH BROKEN ANKLE History of Any Multi-Drug Resistant Organisms: None Reported Past Surgical History: Hysterectomy Past Anesthesia/Blood Transfusion Reactions: No Reported Reaction Past Psychological History: Anxiety Smoking Status: Former smoker Past Alcohol Use History: Rare Past Drug Use History: None Reported - Past Family History Mother Family Medical History: Dementia Additional Family Medical History / Comment(s): HEART ISSUES Father Additional Family Medical History / Comment(s): PASSED WITH HEART PROBLEMS Medications and Allergies Home Medications Medication Instructions Recorded Confirmed Type Atorvastatin [Lipitor] 80 mg PO DAILY 07/22/17 10/30/19 History Venlafaxine HCl [Effexor XR] 150 mg PO DAILY 07/22/17 10/30/19 History ALPRAZolam [Xanax] 0.5 mg PO BID PRN 10/30/19 10/30/19 History Acetaminophen-Codeine 300-30mg 1 tab PO DIRECTED PRN 10/30/19 10/30/19 History [Tylenol w/codeine #3] Venlafaxine HCl [Effexor] 75 mg PO DAILY 10/30/19 10/30/19 History amLODIPine [Norvasc] 5 mg PO DAILY 10/30/19 10/30/19 History metFORMIN HCL [Glucophage] 1,000 mg PO BID 10/30/19 10/30/19 History Allergies Allergy/AdvReac Type Severity Reaction Status Date / Time No Known Allergies Allergy Verified 10/30/19 14:28 Physical Exam Vitals: Vital Signs Temp Pulse Pulse Resp BP BP Pulse Ox 10/31/19 08:00 98 F 96 18 167/77 97 10/31/19 04:00 98.1 F 98 18 179/84 97 10/31/19 00:00 98.1 F 109 H 18 182/81 98 10/30/19 22:35 98.2 F 113 H 18 194/91 98 10/30/19 21:29 98.2 F 113 H 18 194/91 98 10/30/19 18:37 98.5 F 102 H 18 160/65 98 10/30/19 18:35 98.5 F 102 H 18 166/80 99 10/30/19 18:25 98.4 F 106 H 18 160/65 98 10/30/19 17:55 98.1 F 100 18 162/74 98 10/30/19 17:45 98.2 F 98 18 160/78 99 10/30/19 17:35 98.3 F 95 18 162/77 99 10/30/19 17:00 98.2 F 101 H 18 137/63 99 10/30/19 16:30 98.3 F 100 18 145/68 99 10/30/19 16:05 98.2 F 110 H 18 162/81 98 10/30/19 16:00 98.3 F 102 H 18 162/81 98 10/30/19 15:35 98.3 F 106 H 18 148/66 99 10/30/19 15:25 98.4 F 110 H 18 189/77 99 10/30/19 14:35 98.2 F 100 18 98 10/30/19 13:35 98.4 F 96 20 178/74 98 Intake and Output 10/30/19 10/31/19 10/31/19 22:59 06:59 14:59 Intake Total 531 Balance 531 Intake: Blood Product 531 Ffp 24 Cp2d Unit 192 [id number] Ffp 24 Cpd Unit 339 [id number] Other: Voiding Method Toilet Toilet # Voids 2 5 Weight 77.111 kg 80.4 kg GENERAL EXAM: Alert, very pleasant, 69-year-old white female, room air, with a pulse ox of 98% comfortable in no apparent distress. HEAD: Normocephalic/atraumatic. EYES: Normal reaction of pupils, equal size. Conjunctiva pink, sclera white. NOSE: Clear with pink turbinates. THROAT: No erythema or exudates. NECK: No masses, no JVD, no thyroid enlargement, no adenopathy. CHEST: No chest wall deformity. Symmetrical expansion. LUNGS: Equal air entry with clear breath sounds, no crackles, no rhonchi, no wheezing CVS: Regular rate and rhythm, normal S1 and S2, no gallops, no murmurs, no rubs ABDOMEN: Soft, nontender. No hepatosplenomegaly, normal bowel sounds, no guarding or rigidity. EXTREMITIES: No clubbing, no edema, no cyanosis, 2+ pulses and upper and lower extremities. MUSCULOSKELETAL: Muscle strength and tone normal. SPINE: No scoliosis or deformity SKIN: No rashes CENTRAL NERVOUS SYSTEM: Alert and oriented -3. No focal deficits, tone is n ormal in all 4 extremities. PSYCHIATRIC: Alert and oriented -3. Appropriate affect. Intact judgment and insight. Results - Laboratory Findings CBC and BMP: 10/30/19 14:04 10/30/19 14:04 PT/INR, D-dimer PT 9.5 sec (9.0-12.0) 10/30/19 14:33 INR 0.9 (<1.2) 10/30/19 14:33 Abnormal lab findings: Abnormal Labs 10/30/19 10/30/19 10/31/19 14:04 21:29 07:14 Sodium 135 L Glucose 485 H POC Glucose (mg/dL) 482 H 406 H 10/31/19 11:39 Sodium Glucose POC Glucose (mg/dL) 316 H - Diagnostic Findings Chest x-ray: report reviewed, image reviewed Assessment and Plan Plan: Assessment: #1. Acute angioedema, related to an unknown etiology, improved and resolved with medical treatment #2. Intermittent ALLERGIC symptoms including lip swelling, and eyelid swelling, and patient was previously on lisinopril which was discontinued currently undergoing ALLERGY testing on an outpatient basis #3. Hypertension #4. Anxiety #5. Diabetes mellitus type 2 #6. Hyperlipidemia #7. Remote history of smoking, pack a day for 10 years Plan: Continue current medical management, angioedema subsided, breathing is comfortable, patient is maintaining stable oxygen saturation, denies any shortness of breath, no difficulty swallowing, vital signs are stable. Anticipate possible discharge in the next 24 hours, with outpatient follow-up with her workforce specialist I performed a history & physical examination of the patient and discussed their management with my nurse practitioner, Jessica Lopez. I reviewed the nurse practitioner's note and agree with the documented findings and plan of care. Lung sounds are positive for clear breath sounds. The findings and the impression was discussed with the patient. I attest to the documentation by the nurse practitioner. Time with Patient: Greater than 30
[2019-10-31 13:58] VITALS: BP 159/82; PULSE 91; TEMP 97.7
[2019-10-31] MEDS ORDERED: diphenhydrAMINE 25 MG CAP PO PRN (14:11)
[2019-10-31 15:13] VITALS: BMI 32.4
[2019-10-31 16:30] LABS: Glucose,Whole Blood 240 mg/dL (75-99)
[2019-10-31] MEDS ORDERED: FAMOTIDINE 20 MG TAB PO SCH (21:00)
--- NOTE | 2019-11-02 23:35 | P.HPIM ---
History of Present Illness H&P Date: 10/31/19 Chief Complaint: Tongue swelling History of presenting complaint: This is a very pleasant 69-year-old patient of Dr. Chaidez. Chronic stable medical conditions include diabetes, hypertension, hyperlipidemia, just a few days ago had a left ankle fracture for which she has a brace. Patient over the years is had frequent servings-developed eyes of the lips or hands started itching. And she seemed Dr. Amaral in the past. On this occasion she presented with gastrointestinal started swelling have progressed to get worse. Some also itching of the hands. Decided to come in. She was breathing okay but thought it was getting really worse. Patient was given H2 blockers, H1 blockers, and steroids. Pulmonary was consulted. Overnight the patient felt much better improved. There are no new medications. No change in medications. There is no trouble breathing. No choking. Some swelling of the eyes and itching of the hands Review of systems: GEN.: None EYES: None HEENT: Tongue swelling NECK: None RESPIRATORY: None CARDIOVASCULAR: None GASTROINTESTINAL: None GENITOURINARY: None MUSCULOSKELETAL: [Left ankle pain LYMPHATICS: None HEMATOLOGICAL: None PSYCHIATRY: None NEUROLOGICAL: None Past medical history: To include Diabetes, hypertension, hyperlipidemia, left ankle fracture with a brace Social history: Does smoke in the past, alcohol rarely, Physical examination: VITAL SIGNS: 98.3, 106, 18, 148/66, 99% on room air GENERAL: BMI 32.4, sitting upon a distress. EYES: Pupils equal. Conjunctiva normal. HEENT: External appearance of nose and ears normal, oral cavity grossly normal. NECK: JVD not raised; masses not palpable. HEART: First and second heart sounds are normal; no edema. LUNGS: Respiratory rate normal; clear to auscultation. ABDOMEN: Soft, nontender, liver spleen not palpable, no masses palpable. PSYCH: Alert and oriented x3; mood and affect normal. MUSCULAR skeletal: Left ankle with a brace NEUROLOGICAL: Cranial nerves grossly intact; no facial asymmetry, power and sensation grossly intact. LYMPHATICS: No lymph nodes palpable in the axilla and neck INVESTIGATIONS, reviewed in the clinical context: White count 10.2 hemoglobin 14.1/4.7 creatinine 0.62 Accu-Cheks 482 Assessment: -Acute anaphylaxis reaction in a patient is a previous milder forms and no exact cause is been found. -Diabetes mellitus type 2, uncontrolled with hyperglycemia -Essential hypertension -Hyperlipidemia -Left ankle fracture with a brace -Obesity BMI 32.4 Plan: Patient is put on steroids, H2 blockers, H1 blockers, home medications better for the same. Pulmonary was consulted. Patient greatly improved overnight. Care was discussed with the patient. Patient does not want any insulin. Past Medical History Past Medical History: Diabetes Mellitus, Hyperlipidemia, Hypertension Additional Past Medical History / Comment(s): Sunday10/27/19 CAME TO THE ER NOW HAS A BOOT ON LEFT LEG R/T FALL, DX WITH BROKEN ANKLE History of Any Multi-Drug Resistant Organisms: None Reported Past Surgical History: Hysterectomy Past Anesthesia/Blood Transfusion Reactions: No Reported Reaction Past Psychological History: Anxiety Smoking Status: Former smoker Past Alcohol Use History: Rare Past Drug Use History: None Reported - Past Family History Mother Family Medical History: Dementia Additional Family Medical History / Comment(s): HEART ISSUES Father Additional Family Medical History / Comment(s): PASSED WITH HEART PROBLEMS Medications and Allergies Home Medications Medication Instructions Recorded Confirmed Type Atorvastatin [Lipitor] 80 mg PO DAILY 07/22/17 10/30/19 History Venlafaxine HCl [Effexor XR] 150 mg PO DAILY 07/22/17 10/30/19 History ALPRAZolam [Xanax] 0.5 mg PO BID PRN 10/30/19 10/30/19 History Acetaminophen-Codeine 300-30mg 1 tab PO DIRECTED PRN 10/30/19 10/30/19 History [Tylenol w/codeine #3] Venlafaxine HCl [Effexor] 75 mg PO DAILY 10/30/19 10/30/19 History amLODIPine [Norvasc] 5 mg PO DAILY 10/30/19 10/30/19 History metFORMIN HCL [Glucophage] 1,000 mg PO BID 10/30/19 10/30/19 History Famotidine [Pepcid] 20 mg PO Q12HR #10 tab 10/31/19 Rx Loratadine [Claritin] 5 mg PO BID #30 tab 10/31/19 Rx predniSONE 0 mg PO DIRECTED #10 tab 10/31/19 Rx Allergies Allergy/AdvReac Type Severity Reaction Status Date / Time No Known Allergies Allergy Verified 10/30/19 14:28 Physical Exam Vitals: Vital Signs Temp Pulse Pulse Resp BP BP Pulse Ox 10/31/19 04:00 98.1 F 98 18 179/84 97 10/31/19 00:00 98.1 F 109 H 18 182/81 98 10/30/19 22:35 98.2 F 113 H 18 194/91 98 10/30/19 21:29 98.2 F 113 H 18 194/91 98 10/30/19 18:37 98.5 F 102 H 18 160/65 98 10/30/19 18:35 98.5 F 102 H 18 166/80 99 10/30/19 18:25 98.4 F 106 H 18 160/65 98 10/30/19 17:55 98.1 F 100 18 162/74 98 10/30/19 17:45 98.2 F 98 18 160/78 99 10/30/19 17:35 98.3 F 95 18 162/77 99 10/30/19 17:00 98.2 F 101 H 18 137/63 99 10/30/19 16:30 98.3 F 100 18 145/68 99 10/30/19 16:05 98.2 F 110 H 18 162/81 98 10/30/19 16:00 98.3 F 102 H 18 162/81 98 10/30/19 15:35 98.3 F 106 H 18 148/66 99 10/30/19 15:25 98.4 F 110 H 18 189/77 99 10/30/19 14:35 98.2 F 100 18 98 10/30/19 13:35 98.4 F 96 20 178/74 98 Intake and Output 10/30/19 10/31/19 10/31/19 22:59 06:59 14:59 Intake Total 531 Balance 531 Intake: Blood Product 531 Ffp 24 Cp2d Unit 192 [id number] Ffp 24 Cpd Unit 339 [id number] Other: Voiding Method Toilet Toilet # Voids 2 5 Weight 77.111 kg 80.4 kg Results CBC & Chem 7: 10/30/19 14:04 10/30/19 14:04 Labs: Abnormal Lab Results - Last 24 Hours (Table) 10/30/19 10/30/19 10/31/19 Range/Units 14:04 21:29 07:14 Sodium 135 L (137-145) mmol/L Glucose 485 H (74-99) mg/dL POC Glucose (mg/dL) 482 H 406 H (75-99) mg/dL Thrombosis Risk Factor Assmnt - Choose All That Apply Any of the Below Risk Factors Present?: No Each Risk Factor Represents 2 Points: Age 61-74 years Thrombosis Risk Factor Assessment Total Risk Factor Score: 2 Thrombosis Risk Factor Assessment Level: Low Risk
--- NOTE | 2019-11-02 23:38 | P.DS ---
Providers Date of admission: 10/30/19 16:22 Expected date of discharge: 10/31/19 Attending physician: Romain Cotto Consults: 10/30/19 16:23 Consult Physician Urgent Consulting Provider: Janeth Neely Consult Reason/Comments: Angioedema Do you want consulting provider notified?: Already Contacted Primary care physician: [facility] Course: Chief Complaint: Tongue swelling History of presenting complaint: This is a very pleasant 69-year-old patient of Dr. Chaidez. Chronic stable medical conditions include diabetes, hypertension, hyperlipidemia, just a few days ago had a left ankle fracture for which she has a brace. Patient over the years is had frequent servings-developed eyes of the lips or hands started itching. And she seemed Dr. Amaral in the past. On this occasion she presented with gastrointestinal started swelling have progressed to get worse. Some also itching of the hands. Decided to come in. She was breathing okay but thought it was getting really worse. Patient was given H2 blockers, H1 blockers, and steroids. Pulmonary was consulted. Overnight the patient felt much better improved. There are no new medications. No change in medications. There is no trouble breathing. No choking. Some swelling of the eyes and itching of the hands Patient responded well to steroids, H2 and H2 haider. Back to her normal self. Accu-Cheks were running high. Patient declined insulin. Patient told to follow-up with Dr. Amaral. Consultation: Dr. Janeth Sam from pulmonary Physical examination: VITAL SIGNS: 97.7, 91, 18, 159/82, 95% room air GENERAL: BMI 32.4, sitting upon a distress. EYES: Pupils equal. Conjunctiva normal. HEENT: External appearance of nose and ears normal, oral cavity grossly normal. NECK: JVD not raised; masses not palpable. HEART: First and second heart sounds are normal; no edema. LUNGS: Respiratory rate normal; clear to auscultation. ABDOMEN: Soft, nontender, liver spleen not palpable, no masses palpable. PSYCH: Alert and oriented x3; mood and affect normal. MUSCULAR skeletal: Left ankle with a brace NEUROLOGICAL: Cranial nerves grossly intact; no facial asymmetry, power and sensation grossly intact. LYMPHATICS: No lymph nodes palpable in the axilla and neck INVESTIGATIONS, reviewed in the clinical context: White count 10.2 hemoglobin 14.1/4.7 creatinine 0.62 Accu-Cheks 482 Assessment: -Acute anaphylaxis reaction in a patient is a previous milder forms and no exact cause is been found. -Diabetes mellitus type 2, uncontrolled with hyperglycemia -Essential hypertension -Hyperlipidemia -Left ankle fracture with a brace -Obesity BMI 32.4 Disposition: Home Plan - Discharge Summary New Discharge Prescriptions: New Loratadine [Claritin] 5 mg PO BID #30 tab Famotidine [Pepcid] 20 mg PO Q12HR #10 tab predniSONE 0 mg PO DIRECTED #10 tab Continue Venlafaxine HCl [Effexor XR] 150 mg PO DAILY Atorvastatin [Lipitor] 80 mg PO DAILY Venlafaxine HCl [Effexor] 75 mg PO DAILY ALPRAZolam [Xanax] 0.5 mg PO BID PRN PRN Reason: Anxiety metFORMIN HCL [Glucophage] 1,000 mg PO BID amLODIPine [Norvasc] 5 mg PO DAILY Acetaminophen-Codeine 300-30mg [Tylenol w/codeine #3] 1 tab PO DIRECTED PRN PRN Reason: Pain Discharge Medication List Atorvastatin [Lipitor] 80 mg PO DAILY 07/22/17 [History] Venlafaxine HCl [Effexor XR] 150 mg PO DAILY 07/22/17 [History] ALPRAZolam [Xanax] 0.5 mg PO BID PRN 10/30/19 [History] Acetaminophen-Codeine 300-30mg [Tylenol w/codeine #3] 1 tab PO DIRECTED PRN 10/30/19 [History] Venlafaxine HCl [Effexor] 75 mg PO DAILY 10/30/19 [History] amLODIPine [Norvasc] 5 mg PO DAILY 10/30/19 [History] metFORMIN HCL [Glucophage] 1,000 mg PO BID 10/30/19 [History] Famotidine [Pepcid] 20 mg PO Q12HR #10 tab 10/31/19 [Rx] Loratadine [Claritin] 5 mg PO BID #30 tab 10/31/19 [Rx] predniSONE 0 mg PO DIRECTED #10 tab 10/31/19 [Rx] Follow up Appointment(s)/Referral(s): Gaurang Chaidez DO [Primary Care Provider] - 11/11/19 1:20 pm Vida Amaral MD [STAFF PHYSICIAN] - 3 Days ([facility] [id number] [place] [address] ) Patient Instructions/Handouts: Angioedema (ED) Discharge Disposition: HOME SELF-CARE
== END 2019-10-31 18:00 | disposition home or self-care (01) ==
LOC: EC 13:33 → 3SCARD 16:22
PROVIDERS: ADMIT Hospitalist; ATTEND Hospitalist
DX: T78.2XXA Anaphylactic shock, unspecified, initial encounter (principal); E11.65 Type 2 diabetes mellitus with hyperglycemia; E66.9 Obesity, unspecified; E78.5 Hyperlipidemia, unspecified; F41.9 Anxiety disorder, unspecified; I10 Essential (primary) hypertension; Z68.32 Body mass index [BMI] 32.0-32.9, adult; Z79.84 Long term (current) use of oral hypoglycemic drugs; Z79.899 Other long term (current) drug therapy; Z87.891 Personal history of nicotine dependence; Z90.710 Acquired absence of both cervix and uterus; Z82.49 Family history of ischemic heart disease and other diseases of the circulatory system; Z91.81 History of falling; S82.892B Other fracture of left lower leg, initial encounter for open fracture type I or II
CPT/HCPCS: 96376; 36430; 96372; 96374; 96375; 99285; 36415; 93005; 86900; 86901; 86902; 80053; 86161; 85025; 85610; 85730; 86850; 86870; 86880; G0378 ×2; P9059; J0171; J1200; J2930

== ENCOUNTER → 2025-03-23 | Outpatient (CLI) | payer MEDICARE | END | disposition home or self-care (01) | LOC: LABWHC1 11:05 | PROVIDERS: ATTEND Internal Medicine Cardiovascular Disease | DX: E78.2 Mixed hyperlipidemia (principal); R00.2 Palpitations | CPT/HCPCS: 36415; 84443; 84450; 84460 ==